=== PATIENT | female | born 1995 | race Caucasian/White ===

== ENCOUNTER 2022-10-19 23:05 | Emergency (ER) | payer SELFPAY ==
[2022-10-19 23:11] VITALS: BP 111/82; PULSE 75; RESP 17; TEMP 36.4; O2SAT 100
[2022-10-19 23:25] LABS: Basophils Absolute Auto 0.1 K/mm3 (0.0-0.1); Basophils Percent Auto 0.7 % (0.2-1.2); Eosinophils Percent Auto 0.3 % (0-4.4); Hematocrit 42.4 % (37.0-47.0); Hemoglobin 14.3 g/dL (12.0-15.0); Immature Granulocyte Absolute 0.02 K/mm3 (0.00-0.031); Immature Granulocyte Percent A 0.3 % (0-0.5); Lymphocytes Absolute Auto 2.59 K/mm3 (0.9-3.2); Lymphocytes Percent Auto 34.4 % (18.3-44.2); Mean Corpuscular HGB Conc 33.7 g/dl (32-36); Mean Corpuscular Hemoglobin 29.6 pg (26-34); Mean Corpuscular Volume 87.8 fl (80-100); Mean Platelet Volume 9.4 fl (7.4-10.4); Monocytes Absolute Auto 0.8 K/mm3 (0.1-0.6); Neutrophils Percent Auto 53.3 % (45.5-73.1); Platelet Count Result 357 k/mm3 (150-375); Red Blood Count 4.83 M/mm3 (4.2-5.4); Red Cell Distribution Width 12.2 % (11.5-14.5); White Blood Count 7.5 K/mm3 (4.5-10.0)
[2022-10-19 23:38] LABS: Alanine Aminotransferase 20 U/L (6-35); Alkaline Phosphatase 54 U/L (38-126); Anion Gap 6 mmol/L (8-16); Aspartate Amino Transferase 26 U/L (14-36); Bilirubin,Total 0.5 mg/dL (0.2-1.3); Blood Urea Nitrogen 9 mg/dL (7-17); Calcium 9.8 mg/dL (8.4-10.2); Carbon Dioxide 29 mmol/L (22-30); Chloride 102 mmol/L (98-107); Estimated Glomerular Filt Rate > 60; Glucose 100 mg/dL (65-110); Lipase 144 U/L (23-300); Potassium 3.6 mmol/L (3.4-5.0); Sodium 137 mmol/L (137-145)
[2022-10-19 23:40] LABS: Appearance Urine Cloudy (Clear); Bacteria Urine None Seen /hpf; Bilirubin Urine Negative (Negative); Blood Urine Negative (Negative); Color Urine Yellow (Yellow); Glucose Urine UA Negative (Negative); Ketones Urine Negative (Negative); Leukocyte Esterase Ur Negative LEU/UL (Negative); Nitrate Urine Negative (Negative); Non Pathogenic Casts 0-2; Protein Urine Negative (Negative); RBC Urine 0-2 /hpf (0-2); Specific Grav Ur 1.025 (1.001-1.035); Squamous Epithelial Cell Urine None seen /hpf (Few); WBC Urine 0-5 /hpf; pH Urine 7.5 (5.0-9.0)
--- NOTE | 2022-10-19 23:57 | PC.NURSE ---
Patient and SO come to desk to state that she is leaving and going to a different ER. Patient informed of risks of leaving before being seen by a provider. Patient and her SO state, we understand, but were going to leave and go to a different ER. Patient and her SO left ED with a steady gait.
[2022-10-20 00:26] LABS: Add Urine Microscopic? YES
== END 2022-10-19 23:59 | disposition left against medical advice (07) ==
LOC: ANHED 23:55
PROVIDERS: Emergency Provider Emergency Medicine
DX: R10.9 Unspecified abdominal pain (principal)
CPT/HCPCS: 36415; 80053; 81001; 81025; 83690; 85025; 99199

== ENCOUNTER → 2022-12-19 10:05 | Outpatient (CLI) | payer BC, SELFPAY ==
--- NOTE | ~2022-12-19 | XR_ITS ---
Cervical Spine: AP, lateral, open-mouth views Clinical History: Pain Findings: There is mild reversal of the normal cervical lordosis. No fracture identified. Minimal gra de 1 anterolisthesis of C4 over C5 present.. The intervertebral disc spaces are well maintained. Pre -vertebral soft tissues are unremarkable. Impression: Minimal grade 1 anterolisthesis of C4 over C5. Mild reversal of the normal cervical lordosis. Reviewed, dictated and finalized at location . Impression: Minimal grade 1 anterolisthesis of C4 over C5. Mild reversal of the normal cervical lordosis.
--- NOTE | ~2022-12-19 | XR_ITS ---
Lumbosacral Spine: AP, oblique, and lateral views Clinical History: Pain Findings: The normal lordotic curve is maintained. The vertebral bodies and posterior elements are i ntact. The intervertebral disc spaces are preserved. The sacroiliac joints are normally outlined. Impression: No significant abnormality. Reviewed, dictated and finalized at [facility]. Impression: No significant abnormality.
== END ==
PROVIDERS: PCP Nurse Practitioner Family; Visit Provider Nurse Practitioner Family
DX: M54.50 Low back pain, unspecified (principal); M79.604 Pain in right leg; M79.605 Pain in left leg; M54.12 Radiculopathy, cervical region
CPT/HCPCS: 72040; 72110